=== PATIENT | female | born 1935 | race Native Hawaiian/Other Pacific Islander ===

== ENCOUNTER 2021-09-01 08:49 | Outpatient (CLI) | payer OTHER | END 2021-09-01 19:10 | disposition home or self-care (01) | LOC: LAB 08:49 | PROVIDERS: ATTEND Internal Medicine | DX: Z76.89 Persons encountering health services in other specified circumstances (principal) | CPT/HCPCS: 87081 ==

== ENCOUNTER 2021-09-03 08:49 | Outpatient (CLI) | payer OTHER ==
[2021-09-03 09:24] LABS: PLATELET COUNT 209 K/uL (152-353)
[2021-09-03 09:49] LABS: POTASSIUM 4.4 mmol/L (3.6-5.2)
== END 2021-09-03 19:30 | disposition home or self-care (01) ==
LOC: LAB 08:49
PROVIDERS: ATTEND Internal Medicine
DX: I10 Essential (primary) hypertension (principal); E78.49 Other hyperlipidemia; E53.8 Deficiency of other specified B group vitamins; E55.9 Vitamin D deficiency, unspecified; Z79.899 Other long term (current) drug therapy; R79.89 Other specified abnormal findings of blood chemistry
CPT/HCPCS: 80053; 80061; 82306; 82607; 82728; 82746; 83036; 83540; 84443; 85027

== ENCOUNTER 2021-10-24 11:17 | Inpatient (IN) | payer OTHER | END 2021-11-24 08:25 | disposition still patient (30) | LOC: PAVB 11:17 | PROVIDERS: ADMIT Internal Medicine; ATTEND Internal Medicine ==

== ENCOUNTER 2021-11-09 10:19 | Outpatient (CLI) | payer OTHER | END 2021-11-09 19:28 | disposition home or self-care (01) | LOC: RAD 10:19 | PROVIDERS: ATTEND Internal Medicine | DX: M47.816 Spondylosis without myelopathy or radiculopathy, lumbar region (principal); M17.0 Bilateral primary osteoarthritis of knee; N95.8 Other specified menopausal and perimenopausal disorders ==

== ENCOUNTER 2021-11-13 12:31 | Outpatient (CLI) | payer OTHER | END 2021-11-13 18:52 | disposition home or self-care (01) | LOC: RAD 12:31 → LAB 12:31 | PROVIDERS: ATTEND Internal Medicine | DX: R06.2 Wheezing (principal); R06.02 Shortness of breath | CPT/HCPCS: 87502 ==

== ENCOUNTER 2021-11-24 08:31 | Inpatient (IN) | payer OTHER | END 2021-12-25 09:36 | disposition still patient (30) | LOC: PAVB 08:31 | PROVIDERS: ADMIT Internal Medicine; ATTEND Internal Medicine ==

== ENCOUNTER 2021-11-28 16:04 | Outpatient (CLI) | payer OTHER | END 2021-11-28 20:04 | disposition home or self-care (01) | LOC: LAB 16:04 | PROVIDERS: ATTEND Internal Medicine | DX: M54.50 Low back pain, unspecified (principal); R41.0 Disorientation, unspecified | CPT/HCPCS: 81000 ==

== ENCOUNTER 2021-12-05 10:17 | Outpatient (CLI) | payer OTHER | END 2021-12-05 18:54 | disposition home or self-care (01) | LOC: RAD 10:17 | PROVIDERS: ATTEND Internal Medicine | DX: M54.59 Other low back pain (principal) ==

== ENCOUNTER 2021-12-14 09:58 | Outpatient (CLI) | payer OTHER, MEDICARE | END 2021-12-14 20:29 | disposition home or self-care (01) | LOC: MRI 09:58 | PROVIDERS: ATTEND Internal Medicine | DX: M54.59 Other low back pain (principal) ==

== ENCOUNTER 2021-12-18 06:50 | Outpatient (CLI) | payer OTHER, MEDICARE ==
[2021-12-18 08:09] LABS: POTASSIUM 4.6 mmol/L (3.6-5.2)
== END 2021-12-18 18:54 | disposition home or self-care (01) ==
LOC: LAB 06:50
PROVIDERS: ATTEND Internal Medicine
DX: I10 Essential (primary) hypertension (principal); I71.4 Abdominal aortic aneurysm, without rupture; R10.84 Generalized abdominal pain; M85.88 Other specified disorders of bone density and structure, other site; M81.8 Other osteoporosis without current pathological fracture; S32.020A Wedge compression fracture of second lumbar vertebra, initial encounter for closed fracture; S32.050A Wedge compression fracture of fifth lumbar vertebra, initial encounter for closed fracture; Y92.9 Unspecified place or not applicable
CPT/HCPCS: 36415; 80053

== ENCOUNTER 2021-12-18 08:25 | Outpatient (CLI) | payer OTHER, MEDICARE | END 2021-12-18 18:55 | disposition home or self-care (01) | LOC: CT 08:25 | PROVIDERS: ATTEND Internal Medicine | DX: I71.4 Abdominal aortic aneurysm, without rupture (principal); M54.59 Other low back pain; M48.56XD Collapsed vertebra, not elsewhere classified, lumbar region, subsequent encounter for fracture with routine healing; G89.29 Other chronic pain | CPT/HCPCS: Q9963 ==

== ENCOUNTER 2021-12-25 11:18 | Inpatient (IN) | payer OTHER | END 2022-01-22 09:03 | disposition still patient (30) | LOC: PAVB 11:18 | PROVIDERS: ADMIT Internal Medicine; ATTEND Internal Medicine ==

== ENCOUNTER 2022-01-22 15:36 | Inpatient (IN) | payer OTHER | END 2022-02-22 08:45 | disposition still patient (30) | LOC: PAVB 15:36 | PROVIDERS: ADMIT Internal Medicine; ATTEND Internal Medicine ==

== ENCOUNTER 2022-02-22 09:14 | Outpatient (CLI) | payer OTHER, MEDICARE ==
[2022-02-22 09:29] LABS: PLATELET COUNT 219 K/uL (152-353)
[2022-02-22 09:57] LABS: POTASSIUM 4.3 mmol/L (3.6-5.2)
[2022-02-22 11:53] LABS: PARTIAL THROMBOPLASTIN TIME 23.7 SECONDS (24.5-33.6)
== END 2022-02-22 20:50 | disposition home or self-care (01) ==
LOC: LAB 09:14
PROVIDERS: ATTEND Internal Medicine
DX: Z01.818 Encounter for other preprocedural examination (principal); I10 Essential (primary) hypertension
CPT/HCPCS: 80053; 85027; 85610; 85730

== ENCOUNTER 2022-02-22 10:12 | Inpatient (IN) | payer OTHER | END 2022-03-24 11:03 | disposition still patient (30) | LOC: PAVB 10:12 | PROVIDERS: ADMIT Internal Medicine; ATTEND Internal Medicine ==

== ENCOUNTER 2022-03-24 04:14 | Inpatient (IN) | payer OTHER | END 2022-04-24 09:26 | disposition still patient (30) | LOC: PAVB 04:14 → PAVA 04-23 09:02 | PROVIDERS: ADMIT Internal Medicine; ATTEND Internal Medicine ==

== ENCOUNTER 2022-04-16 19:01 | Outpatient (CLI) | payer OTHER | END 2022-04-16 19:31 | disposition home or self-care (01) | LOC: RAD 19:01 | PROVIDERS: ATTEND Internal Medicine | DX: M25.562 Pain in left knee (principal); M25.572 Pain in left ankle and joints of left foot ==

== ENCOUNTER 2022-04-24 11:32 | Inpatient (IN) | payer OTHER | END 2022-05-24 09:01 | disposition still patient (30) | LOC: PAVA 11:32 | PROVIDERS: ADMIT Internal Medicine; ATTEND Internal Medicine ==

== ENCOUNTER 2022-05-24 10:33 | Inpatient (IN) | payer OTHER, MEDICARE | END 2022-06-24 09:23 | disposition still patient (30) | LOC: PAVA 10:33 | PROVIDERS: ADMIT Internal Medicine; ATTEND Internal Medicine ==

== ENCOUNTER 2022-06-05 14:38 | Outpatient (CLI) | payer OTHER | END 2022-06-05 18:58 | disposition home or self-care (01) | LOC: RAD 14:38 | PROVIDERS: ATTEND Internal Medicine | DX: G89.29 Other chronic pain (principal) ==

== ENCOUNTER 2022-06-24 14:27 | Inpatient (IN) | payer OTHER | END 2022-07-25 08:58 | disposition still patient (30) | LOC: PAVA 14:27 | PROVIDERS: ADMIT Internal Medicine; ATTEND Internal Medicine ==

== ENCOUNTER 2022-07-22 07:44 | Outpatient (CLI) | payer OTHER ==
[2022-07-22 08:36] LABS: PLATELET COUNT 264 K/uL (152-353)
[2022-07-22 08:38] LABS: POTASSIUM 4.3 mmol/L (3.6-5.2)
== END 2022-07-22 19:48 | disposition home or self-care (01) ==
LOC: LAB 07:44
PROVIDERS: ATTEND Internal Medicine
DX: I10 Essential (primary) hypertension (principal)
CPT/HCPCS: 80048; 85027; 85652

== ENCOUNTER 2022-07-25 10:04 | Inpatient (IN) | payer OTHER | END 2022-08-24 10:19 | disposition still patient (30) | LOC: PAVA 10:04 | PROVIDERS: ADMIT Internal Medicine; ATTEND Internal Medicine ==

== ENCOUNTER 2022-08-24 12:02 | Inpatient (IN) | payer OTHER | END 2022-09-24 09:44 | disposition still patient (30) | LOC: PAVA 12:02 | PROVIDERS: ADMIT Internal Medicine; ATTEND Internal Medicine ==

== ENCOUNTER 2022-08-26 09:30 | Outpatient (CLI) | payer OTHER ==
[2022-08-26 09:59] LABS: PLATELET COUNT 252 K/uL (152-353)
[2022-08-26 10:08] LABS: POTASSIUM 5.2 mmol/L (3.6-5.2)
== END 2022-08-26 20:40 | disposition home or self-care (01) ==
LOC: LAB 09:30
PROVIDERS: ATTEND Internal Medicine
DX: I10 Essential (primary) hypertension (principal); E78.49 Other hyperlipidemia
CPT/HCPCS: 80053; 80061; 85027

== ENCOUNTER 2022-08-29 13:50 | Outpatient (CLI) | payer OTHER | END 2022-08-29 19:16 | disposition home or self-care (01) | LOC: LAB 13:50 | PROVIDERS: ATTEND Internal Medicine | DX: H53.141 Visual discomfort, right eye (principal) | CPT/HCPCS: 87070; 87077; 87185; 87186; 87205 ==

== ENCOUNTER 2022-09-09 08:01 | Outpatient (CLI) | payer OTHER | END 2022-09-09 20:39 | disposition home or self-care (01) | LOC: US 08:01 | PROVIDERS: ATTEND Internal Medicine | DX: I71.40 Abdominal aortic aneurysm, without rupture, unspecified (principal) ==

== ENCOUNTER 2022-09-24 10:13 | Inpatient (IN) | payer OTHER | END 2022-10-24 10:05 | disposition still patient (30) | LOC: PAVA 10:13 | PROVIDERS: ADMIT Internal Medicine; ATTEND Internal Medicine ==

== ENCOUNTER 2022-10-24 10:26 | Inpatient (IN) | payer OTHER | END 2022-11-24 10:28 | disposition still patient (30) | LOC: PAVA 10:26 | PROVIDERS: ADMIT Internal Medicine; ATTEND Internal Medicine ==

== ENCOUNTER 2022-11-24 11:17 | Inpatient (IN) | payer OTHER | END 2022-12-25 08:37 | disposition still patient (30) | LOC: PAVA 11:17 | PROVIDERS: ADMIT Internal Medicine; ATTEND Internal Medicine ==

== ENCOUNTER 2022-12-25 10:04 | Inpatient (IN) | payer OTHER | END 2023-01-22 09:51 | disposition still patient (30) | LOC: PAVA 10:04 | PROVIDERS: ADMIT Internal Medicine; ATTEND Internal Medicine ==

== ENCOUNTER 2023-01-22 11:43 | Inpatient (IN) | payer OTHER | END 2023-02-22 10:58 | disposition still patient (30) | LOC: PAVA 11:43 | PROVIDERS: ADMIT Internal Medicine; ATTEND Internal Medicine ==

== ENCOUNTER 2023-02-22 11:13 | Inpatient (IN) | payer OTHER | END 2023-03-24 09:54 | disposition still patient (30) | LOC: PAVA 11:13 | PROVIDERS: ADMIT Internal Medicine; ATTEND Internal Medicine ==

== ENCOUNTER 2023-02-25 08:35 | Outpatient (CLI) | payer OTHER ==
[2023-02-25 08:50] LABS: PLATELET COUNT 243 K/uL (152-353)
[2023-02-25 09:02] LABS: POTASSIUM 4.6 mmol/L (3.6-5.2)
== END 2023-02-25 22:04 | disposition home or self-care (01) ==
LOC: LAB 08:35
PROVIDERS: ATTEND Internal Medicine
DX: E78.49 Other hyperlipidemia (principal); M17.0 Bilateral primary osteoarthritis of knee; I10 Essential (primary) hypertension
CPT/HCPCS: 80053; 85027

== ENCOUNTER 2023-03-03 09:55 | Outpatient (CLI) | payer OTHER | END 2023-03-03 19:01 | disposition home or self-care (01) | LOC: RAD 09:55 | PROVIDERS: ATTEND Internal Medicine | DX: M25.561 Pain in right knee (principal); M17.0 Bilateral primary osteoarthritis of knee ==

== ENCOUNTER 2023-03-24 10:23 | Inpatient (IN) | payer OTHER | END 2023-04-24 09:06 | disposition still patient (30) | LOC: PAVA 10:23 | PROVIDERS: ADMIT Internal Medicine; ATTEND Internal Medicine ==

== ENCOUNTER 2023-03-25 11:40 | Outpatient (CLI) | payer OTHER | END 2023-03-25 19:24 | disposition home or self-care (01) | LOC: LAB 11:40 | PROVIDERS: ATTEND Internal Medicine | DX: J30.89 Other allergic rhinitis (principal) | CPT/HCPCS: 87070; 87077; 87185; 87186; 87205 ==

== ENCOUNTER 2023-04-24 10:24 | Inpatient (IN) | payer OTHER | END 2023-05-24 17:38 | disposition still patient (30) | LOC: PAVA 10:24 → PAVB 05-14 14:04 | PROVIDERS: ADMIT Internal Medicine; ATTEND Internal Medicine ==

== ENCOUNTER 2023-05-30 13:52 | Outpatient (CLI) | payer OTHER | END 2023-05-30 19:09 | disposition home or self-care (01) | LOC: LAB 13:52 | PROVIDERS: ATTEND Internal Medicine | DX: R09.89 Other specified symptoms and signs involving the circulatory and respiratory systems (principal) | CPT/HCPCS: 87502 ==